=== PATIENT | female | born 1950 | race Caucasian/White ===

== ENCOUNTER 2020-03-11 10:59 | Emergency (ER) | payer MEDICARE ==
[2020-03-11 11:08] VITALS: BMI 32.9
[2020-03-11] MEDS ORDERED: BAMLANIVIMAB 700 MG in SODIUM CHLORIDE 180 ML IVPB ONE (13:22)
[2020-03-11 15:21] LABS: BASO % 0.5 % (0-2.0); EOS % 0.2 % (0-4.5); HEMATOCRIT 41.4 % (32.4-45.2); HEMOGLOBIN 13.5 GM/dL (10.7-15.3); LYMPH % 27.5 % (8-40); MCHC 32.5 g/dl (32.0-36.0); MEAN CELL VOLUME 83.1 fl (80-96); MEAN PLT VOLUME 10.7 fl (7.5-11.1); MONO % 10.7 % (3.8-10.2); NEUT % 61.1 % (42.8-82.8); PLATELET COUNT 190 K/MM3 (134-434); RBC 4.98 M/mm3 (3.60-5.2); RDW 16.8 % (11.6-15.6); WHITE BLOOD COUNT 4.6 K/mm3 (4.0-10.0)
[2020-03-11 15:38] LABS: POTASSIUM 3.7 mmol/L (3.5-5.1)
[2020-03-11 15:41] LABS: CALCIUM 9.4 mg/dL (8.5-10.1)
[2020-03-11 15:42] LABS: ALBUMIN 4.2 g/dl (3.4-5.0); BLOOD UREA NITROGEN 20.5 mg/dL (7-18)
[2020-03-11 15:45] LABS: CREATININE 0.7 mg/dL (0.55-1.3)
[2020-03-11 15:46] LABS: BILIRUBIN,TOTAL 0.5 mg/dL (0.2-1); TOT PROT 8.2 g/dl (6.4-8.2)
[2020-03-11 17:06] VITALS: BP 114/55; PULSE 65; TEMP 98.5
== END 2020-03-11 17:49 | disposition home or self-care (01) ==
LOC: JER 10:59
DX: U07.1 COVID-19 (principal)
CPT/HCPCS: 36415; 80053; 85025; 96374; 99284-25; C9803; M0239; Q0239; U0003